=== PATIENT | male | born 1990 | race Caucasian/White ===

== ENCOUNTER 2024-08-07 06:20 | Day surgery (SDC) | payer OTHER, SELFPAY | END 2024-08-07 15:10 | disposition home or self-care (01) | LOC: GI 06:20 | PROVIDERS: ATTENDING PHYSICIAN Internal Medicine Gastroenterology | DX: R12 Heartburn (principal); R11.2 Nausea with vomiting, unspecified; K44.9 Diaphragmatic hernia without obstruction or gangrene; Q39.9 Congenital malformation of esophagus, unspecified | CPT/HCPCS: 43235 ==

== ENCOUNTER 2025-01-06 06:29 | Day surgery (SDC) | payer OTHER, SELFPAY | END 2025-01-06 11:02 | disposition home or self-care (01) | LOC: GI 06:29 | PROVIDERS: ATTENDING PHYSICIAN Internal Medicine Gastroenterology | DX: K92.1 Melena (principal); D50.0 Iron deficiency anemia secondary to blood loss (chronic); K57.30 Diverticulosis of large intestine without perforation or abscess without bleeding; R12 Heartburn; K44.9 Diaphragmatic hernia without obstruction or gangrene; Q39.9 Congenital malformation of esophagus, unspecified; K31.7 Polyp of stomach and duodenum; K63.89 Other specified diseases of intestine | CPT/HCPCS: 43239; 45378; 88305 ==